=== PATIENT | male | born 1955 | race Caucasian/White ===

== ENCOUNTER → 2018-12-04 09:33 | Outpatient (CLI) | payer OTHER, SELFPAY ==
--- NOTE | 2018-12-04 10:58 | DI.MRI.S_ITS ---
PROCEDURE: MR KNEE RT WO CON INDICATIONS: RIGHT KNEE PAIN CENTERED ON PATELLA POST FALL INJURY IN JUNE 2018 TECHNIQUE: Noncontrast sagittal PD fast spin echo and T2 fast spin echo with fat saturation, sagittal 3-D FLASH with fat saturation; coronal T1 spin echo and PD fast spin echo with fat saturation, and axial PD fast spin echo with fat saturation through the knee. COMPARISON: None. FINDINGS: Image quality: Excellent. Menisci: The medial meniscus is extruded medially. Amorphous high signal intensity within the anterior horn, body, and posterior horn of the medial meniscus is present, indicating degenerative tearing. Truncation of the free edge of the medial meniscal body and posterior horn is present, indicating radial tearing. There is oblique tearing of the posterior horn medial meniscus at the meniscal root ligament insertion site. Lateral meniscus demonstrates a discoid configuration without evidence of superimposed tear. Cruciate ligaments: The anterior and posterior cruciate ligaments appear intact. Medial structures: The medial collateral ligament appears intact. There is moderate fluid deep to the medial collateral ligament. Visualized portions of the pes anserinus tendons appear normal. No abnormal bursal fluid. Lateral structures: The lateral collateral ligament, long and short heads of the biceps femoris tendon appear intact. The popliteus tendon appears normal. Iliotibial band appears normal. Anterior structures: The quadriceps and patellar tendons appear intact. Mild T2 signal elevation within the patellar tendon at the patellar insertion site is present. Patellar alignment is normal. No femoral trochlear dysplasia or ventral trochlear prominence. No edema in the infrapatellar fat pad. Bones and cartilage: No bone marrow contusions or fractures. Mild degenerative marrow edema within the weightbearing aspects of the medial femoral condyle and medial tibial plateau. Moderate tricompartmental periarticular osteophyte formation is present. There is severe diffuse articular cartilage loss overlying the weightbearing aspects of the medial femoral condyle and medial tibial plateau. There is mild diffuse articular cartilage loss overlying the weightbearing aspects of the lateral femoral condyle and lateral tibial plateau. Joint space: There is a moderate knee joint effusion. Multiple small intra-articular loose bodies are present. No Sethi's cyst. Normal appearing synovial plicae are incidentally noted. IMPRESSION: 1. Multifocal complex tearing of the medial meniscus. 2. Discoid lateral meniscus without tear. 3. Tricompartmental osteoarthritis with associated articular cartilage loss. 4. Medial collateral ligament bursitis.5. Knee joint effusion with multiple small intra-articular loose bodies. 6. Patellar tendinitis. Dictated by: Nghia Nguyen M.D. on 12/04/2018 at 12:58 Approved by: Nghia Nguyen M.D. on 12/04/2018 at 13:06
== END ==
PROVIDERS: PCP Physician Assistant; Visit Provider Physician Assistant
DX: M25.561 Pain in right knee (principal); S83.231A Complex tear of medial meniscus, current injury, right knee, initial encounter; M17.11 Unilateral primary osteoarthritis, right knee; M70.51 Other bursitis of knee, right knee; M76.51 Patellar tendinitis, right knee
CPT/HCPCS: 73721

== ENCOUNTER → 2019-06-18 07:44 | Outpatient (CLI) | payer OTHER, SELFPAY ==
--- NOTE | 2019-06-18 | DI.MRI.S_ITS ---
PROCEDURE: MR LUMBAR SPINE WO CON INDICATIONS: Low back pain TECHNIQUE: Noncontrast sagittal T1 spin echo and T2 fast echo, sagittal STIR, axial T1 and T2 fast spin echo through the lumbar spine. In cases with scoliosis, additional coronal T2 fast spin echo may be performed. COMPARISON: None. FINDINGS: Image quality: Excellent. Alignment and Curvature: There is trace retrolithesis of L2 on L3, L3 on L4, trace anterolithesis of L5 on S1. Transitional anatomy is noted. For purposes of this examination, vertebral bodies are labeled one through 5. Lumbarized first sacral vertebral body is noted. Bone Marrow: Marrow is of normal overall signal. Increased T1/T2 singnal in the vertebral bodies at L4, L5, S1 consistent with hemangiomas, No acute vertebral body compression fractures. Spinal Cord: Conus medullaris terminates at the L2 level. Visualized cord demonstrates normal signal and size. Paraspinous Soft Tissues: No paravertebral masses. Discs: Mild/moderate desiccation is present throughout the lumbar spine. L1-L2: No disc bulge, spinal stenosis or foraminal narrowing. L2-L3: Mild disc bulge with small posterior central/left paracentral protrusion. No spinal stenosis. Moderate bilateral foraminal narrowing with facet and ligamentum flavum hypertrophy. L3-L4: Mild disc bulge without spinal stenosis. Moderate to severe right and mild/moderate left foraminal narrowing with facet and ligamentum flavum hypertrophy. L4-L5: Mild disc bulge without spinal stenosis. There is a right lateral recess component as well as significant facet hypertrophy at this location causing significant compromise of the right lateral recess and proximal right foramina. Minimal to mild left foraminal narrowing. L5-S1: Mild disc bulge with moderate spinal stenosis. Severe left foraminal narrowing. In addition, there is an extruded fragment causing compromise of the left lateral recess and proximal left foramina. IMPRESSION: 1. Multilevel disc bulges including extruded fragment at left L5-S1 causing significant compromise of the left lateral recess and left proximal foramina. 2. Moderate spinal stenosis at L5 S1 secondary to disc bulge as well as marked facet and ligamentum flavum arthropathy. Dictated by: Yumi Liu M.D. on 06/18/2019 at 13:19 Approved by: Yumi Liu M.D. on 06/18/2019 at 14:34
== END ==
PROVIDERS: PCP Physician Assistant; Visit Provider Physician Assistant
DX: M54.5 Low back pain (principal); M48.061 Spinal stenosis, lumbar region without neurogenic claudication; M48.07 Spinal stenosis, lumbosacral region; M47.816 Spondylosis without myelopathy or radiculopathy, lumbar region; M47.817 Spondylosis without myelopathy or radiculopathy, lumbosacral region
CPT/HCPCS: 72148

== ENCOUNTER → 2020-06-27 07:58 | Outpatient (CLI) | payer MEDICARE, BC, SELFPAY ==
--- NOTE | 2020-06-27 | DI.US.S_ITS ---
PROCEDURE: US ABD AORTA ANEURYSM SCREEN INDICATIONS: SCREEN TECHNIQUE: Real time scanning was performed of the aorta and iliac arteries, with image documentation. COMPARISON: None. FINDINGS: Aorta: Proximal aortic diameter measures 2.4 cm. Mid-aorta measures 1.9 cm. Distal aortic diameter is 1.8 cm. Iliac arteries: Right common iliac artery measures 1.1 cm. Left common iliac artery measures 1.2 cm. IMPRESSION: No aneurysm found. Dictated by: Aguilar Sims M.D. on 06/27/2020 at 8:39 Approved by: Aguilar Sims M.D. on 06/27/2020 at 8:43
== END ==
PROVIDERS: PCP Physician Assistant; Referring Provider Nurse Practitioner Family; Visit Provider Nurse Practitioner Family
DX: Z13.6 Encounter for screening for cardiovascular disorders (principal)
CPT/HCPCS: 76706

== ENCOUNTER → 2022-06-23 09:29 | Outpatient (CLI) | payer MEDICARE, BC, SELFPAY ==
[2022-06-23 10:46] LABS: COVID19 -Nasal RAPID Negative (Negative)
== END ==
PROVIDERS: PCP Internal Medicine; Visit Provider Surgery
DX: Z20.822 Contact with and (suspected) exposure to COVID-19 (principal); Z01.812 Encounter for preprocedural laboratory examination
CPT/HCPCS: 87635; C9803

== ENCOUNTER 2022-06-24 07:57 | Day surgery (SDC) | payer MEDICARE, BC, SELFPAY ==
--- NOTE | 2022-06-24 | PATH_ITS ---
[facility] Accession Number: [id number] . 01 Material submitted: . colon - DESCENDING COLON POLYP . 01 Diagnosis: Descending Colon Polyp: Tubular adenoma. MRV 06/25/2022 1008 Local . 01 Electronically signed: . Nohemy Reeves MD, Pathologist NPI- [id number] . 01 Gross description: . DESCENDING COLON POLYP: Received in formalin is 1 fragment(s) of alicia, soft tissue measuring 0.4 x 0.3 x 0.2 cm submitted entirely in 1 cassette(s) /EWA 06/24/2022 2208 Local . 01 Pathologist provided ICD-10: K63.5, Z12.11 . 01 CPT . 052487 Specimen Comment: A courtesy copy of this report has been sent to [phone] Performed at: 01 [facility] [address] [place] [id number] MD Bebeto Juares MD Phone: [phone]
[2022-06-24 08:24] VITALS: BP 148/78; PULSE 72; RESP 16; TEMP 36.5; O2SAT 99
[2022-06-24 08:26] VITALS: BMI 24.9
[2022-06-24] MEDS: LACTATED RINGERS 1,000 ML 84 ML IV (08:46)
--- NOTE | 2022-06-24 09:04 | PM.HP.1 ---
History of Present Illness History of Present Illness Date Patient Seen: 06/24/22 Time Patient Seen: 09:04 Chief complaint: SDC Narrative: Medardo is a 67-year-old man who is here for colonoscopy. His last was about 5 years ago and no polyps were detected at that time. He did have polyps removed on his first colonoscopy. He is no known family history of colon cancer. Patient History Surgical History (Updated 06/24/22 @ 08:17 by Terri Dunham RN) Hx of colonoscopy Family & Social History Social History: household members spouse Tobacco & Substance use: Smoking Status Former smoker alcohol intake current alcohol intake frequency a few times a week Substance Use Type does not use Meds Home Medications and Allergies Home Medications Medication Instructions Recorded Confirmed Type ASPIRIN (Aspir-Low) 81 mg PO Q DAY ##0 08/02/12 06/24/22 History VITAMIN D (Vitamin D3) 1,000 unit PO QDAY ##0 08/02/12 06/24/22 History PreserVision AREDS-2 1 cap DAILY 06/24/22 06/24/22 History lisinopril 10 1 tab DAILY 06/24/22 06/24/22 History mg-hydrochlorothiazide 12.5 mg tablet Allergies Allergy/AdvReac Type Severity Reaction Status Date / Time No Known Drug Allergies Allergy Verified 06/24/22 08:19 Exam Vital Signs (past 8 hours): - 06/24/22 08:24 Temperature 97.7 F Pulse Rate 72 Respiratory Rate 16 Blood Pressure 148/78 H Pulse Oximetry 99 Oxygen Delivery Method Room Air Oxygen Delivery Method Room Air Const General: healthy appearing Resp Effort & Inspection: normal respiratory effort Assessment & Plan Assessment and plan (1) Colon cancer screening: Status: Acute Plan 67-year-old man due for colonoscopy. We reviewed the risks and benefits and he would like to proceed. Time Spent With Patient Critical Care time: I spent a total of [] minutes of critical care time on this patient's care today; this time is exclusive of procedural time.
[2022-06-24] MEDS: fentaNYL 250 MCG/5 ML INJ 100 MCG IV (09:12)
[2022-06-24] MEDS: MIDAZOLAM 5 MG/5 ML VIAL 4 MG IV (09:12)
--- NOTE | 2022-06-24 09:33 | PM.OP.COLON ---
Operative Date/Time/Diagnoses Date of procedure: 06/24/22 Time of procedure: 09:33 Pre-op diagnosis: Colon cancer screening Post-op diagnosis: same Procedure & Clinicians Study performed: Colonoscopy Same procedure as scheduled: Yes Surgeon: Anoop Urena Procedure Notes Procedure in detail: Surgeon: Anoop Urena MD Procedure: The patient was brought to the endoscopy suite, placed in left lateral decubitus position. The patient was connected to monitoring devices. A time-out was performed. Sedation was administered. Once the patient was adequately sedated, a digital rectal exam was performed. Prostate was enlarged but smooth. The scope was then inserted and advanced to the cecum where the appendiceal orifice was identified and photographed. The scope was then slowly withdrawn over greater than 6 minutes. The mucosa was thoroughly inspected. There was 1 small polyp roughly 4 mm in the descending colon removed with cold forceps. The scope was retroflexed in the rectum. No other lesions were noted. The scope was straightened and removed. The patient was awakened and brought to recovery. Versed: 4 mg Fentanyl: 100 mcg EBL: 5 mL Findings: 1 small polyp in the descending colon Scope withdrawal time: 12 Sedation minutes: 21 Post-procedure Recommendations: Will call with biopsy results Disposition: PACU
[2022-06-24 09:38] VITALS: BP 122/69; PULSE 68; RESP 14; TEMP 36.5; O2SAT 100
[2022-06-24 09:41] VITALS: BP 104/76; PULSE 75; RESP 16; O2SAT 99
[2022-06-24 09:45] VITALS: BP 119/74; PULSE 70; RESP 16; O2SAT 100
[2022-06-24 10:00] VITALS: BP 123/70; PULSE 77; RESP 16; O2SAT 100
== END 2022-06-24 10:08 | disposition home or self-care (01) ==
PROVIDERS: PCP Internal Medicine; Referring Provider Surgery; Visit Provider Surgery
PROC: 0DJD8ZZ Inspection of Lower Intestinal Tract, Via Natural or Artificial Opening Endoscopic (ICD-10-PCS; CPT 45378; principal; 2022-06-24 09:15)
DX: Z12.11 Encounter for screening for malignant neoplasm of colon (principal); D12.4 Benign neoplasm of descending colon
CPT/HCPCS: 45380; 99152; J2250; J3010

== ENCOUNTER → 2023-08-03 09:03 | Outpatient (CLI) | payer MEDICARE, BC, SELFPAY ==
--- NOTE | 2023-08-03 09:06 | DI.RAD.S_ITS ---
PROCEDURE: XR KNEE RT 3V INDICATIONS: RIGHT KNEE PAIN TECHNIQUE: 3 views of the knee were acquired. COMPARISON: None. FINDINGS: Bones: No fractures or dislocations. Xktl-oi-tmmrtxst tricompartmental osteoarthritis is seen more notably in medial femoral tibial compartment with joint space narrowing, subchondral sclerosis and marginal osteophyte formation. No patellar subluxation. No suspicious bony lesions. Soft tissues: Small to moderate suprapatellar joint effusion is seen.. No suspicious soft tissue calcifications. IMPRESSION: 1. Moul-fh-rufdylnl tricompartmental osteoarthritis more notably in medial femoral tibial compartment. No fracture or dislocation. Small to moderate joint effusion. Dictated by: Gibson Fitzgerald M.D. on 08/03/2023 at 10:03 Approved by: Gibson Fitzgerald M.D. on 08/03/2023 at 10:04
--- NOTE | 2023-08-03 09:06 | DI.RAD.S_ITS ---
PROCEDURE: XR LUMBAR SPINE MIN 4V INDICATIONS: BACK PAIN TECHNIQUE: Five views of the lumbar spine were acquired, including bilateral oblique views. COMPARISON: None. FINDINGS: Bones: 5 nonrib-bearing vertebrae are present. There is kmjb-bo-dmnsfkjt dextroscoliosis of lumbar spine with apex at L2-3 level. Degenerative endplate changes and loss of disc height throughout lumbar spine is seen. 1.1 cm anterolisthesis of L4 on L5 is seen. 8 mm retrolisthesis of L2 on L3 is seen. 5 mm anterolisthesis of L3 on L4 is also noted. No vertebral body compression fractures. No suspicious bony lesions. Soft tissues: Overlying bowel gas pattern is normal. No suspicious soft tissue calcifications. Oblique images: No pars defects. IMPRESSION: Fvam-uc-csejkcqe dextroscoliosis centered at L2-3 level. Spondylolisthesis at L2-3, L3-4 and L4-5 levels as above. No acute compression fracture. Degenerative disc disease throughout lumbar spine. No gross pars defect. Dictated by: Gibson Fitzgerald M.D. on 08/03/2023 at 10:04 Approved by: Gibson Fitzgerald M.D. on 08/03/2023 at 10:06
== END ==
PROVIDERS: PCP Internal Medicine; Referring Provider Physical Medicine & Rehabilitation; Visit Provider Physical Medicine & Rehabilitation
DX: M17.11 Unilateral primary osteoarthritis, right knee (principal); S83.8X1S Sprain of other specified parts of right knee, sequela; M25.461 Effusion, right knee; M51.36 Other intervertebral disc degeneration, lumbar region; M43.16 Spondylolisthesis, lumbar region; M48.062 Spinal stenosis, lumbar region with neurogenic claudication; M41.9 Scoliosis, unspecified; M25.561 Pain in right knee; M54.9 Dorsalgia, unspecified
CPT/HCPCS: 72110; 73562; 99214

== ENCOUNTER → 2024-10-03 11:17 | Outpatient (CLI) | payer MEDICARE, BC, SELFPAY ==
[2024-10-03 12:47] LABS: Add Manual Diff / Slide Review NO; Basophils Absolute Auto 0 /uL (0-100); Basophils Percent Auto 0.7 % (0-2); Eosinophils Absolute Auto 0 /uL (0-450); Eosinophils Percent Auto 0.9 % (2-4); Hematocrit 43.1 % (41-53); Hemoglobin 14.6 g/dL (13.5-17.5); Lymphocytes Absolute Auto 1500 /uL (1100-4500); Lymphocytes Percent Auto 25.8 % (25-40); Mean Corpuscular HGB Conc 33.9 % (30-36); Mean Corpuscular Hemoglobin 30.7 PG (26-34); Mean Corpuscular Volume 90.7 fL (80-100); Monocytes Absolute Auto 600 /uL (0-900); Monocytes Percent Auto 11.1 % (3-14); Neutrophils Absolute Auto 3600 /uL (1500-7000); Neutrophils Percent Auto 61.5 % (50-75); Platelet Count 243 X10^3/uL (150-400); Red Blood Cell Count 4.75 X10^6/uL (4.5-5.9); Red Cell Distribution Width 12.7 % (11.6-14.8); White Blood Cell Count 5.8 X10^3/uL (4.5-11.0)
[2024-10-03 13:14] LABS: C-Reactive Protein Quant 0.9 mg/dL (<1.0)
== END ==
PROVIDERS: PCP Registered Nurse; Referring Provider Physical Medicine & Rehabilitation; Visit Provider Physical Medicine & Rehabilitation
DX: M25.461 Effusion, right knee (principal)
CPT/HCPCS: 36415; 85025; 86140

== ENCOUNTER → 2024-10-03 15:07 | Outpatient (CLI) | payer MEDICARE, BC, SELFPAY ==
--- NOTE | 2024-10-03 15:08 | DI.MRI.S_ITS ---
PROCEDURE: MR KNEE RT WO CON INDICATIONS: Right knee effusion TECHNIQUE: Noncontrast sagittal PD fast spin echo and T2 fast spin echo with fat saturation, sagittal 3-D FLASH with fat saturation; coronal T1 spin echo and PD fast spin echo with fat saturation, and axial PD fast spin echo with fat saturation through the knee. COMPARISON: [facility] [place], CR, XR KNEE 4+ VIEWS RIGHT, 05/26/2022, 9:07. [facility], MR, MR KNEE RT WO CON, 12/04/2018, 10:36. FINDINGS: Image quality: Excellent. Anterior cruciate ligament: Moderate to severe mucoid degeneration of the anterior cruciate ligament. Posterior cruciate ligament: Intact. Medial collateral ligament: Intact. Lateral collateral ligament: Intact. Medial meniscus: Complex degenerative tearing and maceration of the medial meniscus with extrusion beyond the femorotibial joint line, mildly progressed when compared to the MRI from 12/04/2018. Lateral meniscus: There is progressive complex degenerative tearing and maceration of the lateral meniscus predominant involving the anterior horn and body with meniscal extrusion, which has significantly progressed when compared to the prior MRI. Medial and lateral tendons: The semimembranosus tendon insertions appear intact. Visualized portions of the pes anserinus tendons appear normal. The popliteus tendon is intact. Iliotibial band appears normal. Anterior structures: Patellar tendinosis. The distal quadriceps tendon is intact. No patellar subluxation. No femoral trochlear dysplasia or ventral trochlear prominence. No edema in the infrapatellar fat pad. Bones and cartilage: Mild osseous edema in the lateral tibial plateau is likely related to overlying cartilage loss versus less likely an osseous contusion or insufficiency fracture. Medial femorotibial cartilage: Diffuse full thickness cartilage loss throughout the weight-bearing portion of the medial femorotibial compartment with subchondral edema and remodeling of the articular surfaces. Small marginal osteophytes. Lateral femorotibial cartilage: Multifocal high-grade and full-thickness cartilage loss throughout the lateral femorotibial compartment, which has significantly progressed when compared to the MRI from 12/04/2018 with subchondral edema most prominent at the central portion of the lateral tibial plateau. Small marginal osteophytes. Patellofemoral cartilage: Full-thickness cartilage fissuring and multifocal cartilage irregularity are seen in the patellofemoral compartment with small marginal osteophytes. 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 Pericapsular ganglion cyst posterior to the intercondylar notch measures approximately 16 mm in diameter. Trace medial popliteal cyst. There is grade 2 fatty infiltration of the musculature surrounding the knee. IMPRESSION: 1. Complex degenerative tearing and maceration at the anterior horn and body of the lateral meniscus with extrusion beyond the femorotibial joint line, new when compared to the MRI from 12/04/2018. 2. Diffuse complex macerated tear of the medial meniscus has mildly progressed. 3. Moderate to severe mucoid degeneration of the anterior cruciate ligament. 4. High-grade and full-thickness cartilage loss in the weight-bearing portion of the lateral femorotibial compartment with moderate subchondral edema, which is new when compared to the prior MRI. Full-thickness cartilage loss again seen throughout the medial femorotibial compartment with remodeling of the articular surfaces and there is grade 3 chondromalacia in the patellofemoral compartment. 5. Patellar tendinosis. 6. Large joint effusion with lipoma arborescens. Approved by: Herman Galindo M.D. on 10/03/2024 at 16:11
== END ==
PROVIDERS: PCP Registered Nurse; Referring Provider Physical Medicine & Rehabilitation; Visit Provider Physical Medicine & Rehabilitation
DX: S83.231A Complex tear of medial meniscus, current injury, right knee, initial encounter (principal); S83.271A Complex tear of lateral meniscus, current injury, right knee, initial encounter; S83.8X1A Sprain of other specified parts of right knee, initial encounter; M17.11 Unilateral primary osteoarthritis, right knee; M25.461 Effusion, right knee; M22.41 Chondromalacia patellae, right knee; D17.79 Benign lipomatous neoplasm of other sites; X58.XXXA Exposure to other specified factors, initial encounter
CPT/HCPCS: 36415; 73721; 85025; 86140; 99214

== ENCOUNTER → 2025-03-13 09:24 | Outpatient (CLI) | payer MEDICARE, BC, SELFPAY ==
--- NOTE | 2025-03-13 09:25 | DI.ECHO.S_ITS ---
[facility] : : [id number] : : [place] : : [id number] : : Phone: [phone] Echocardiogram Report + + :Name: ALICE BARCLAY Study Date: 03/13/2025 Height: 76 in : :[facility] ReadingLocation: Weight: 205 lb : : Gender: Male BSA: 2.2 m2 : :: 1955 Age: 69 yrs BP: 166/88 mmHg: :Reason For Study: ABNORMAL EKG : :Ordering Physician: DAILY, : :JOEY Performed By: Carlos Gonzalez : :Referring: JOEY AMBROSIO : + + Interpretation Summary The ejection fraction is estimated to be 55-60%. Diastolic parameters suggest probable normal left ventricular diastolic function and normal filling pressures. The right ventricle is normal in size and function. No valvular abnormalities. Pulmonary artery pressures cannot be estimated because of the lack of a measurable TR jet velocity but the IVC suggests a CVP of around 3 mmHg. The aortic root is mildly dilated, 4.0 cm. Procedure: A two-dimensional transthoracic echocardiogram with color flow and Doppler was performed. The study quality was technically good. There is no prior echocardiogram noted for this patient. The patient was in normal sinus rhythm during the exam. Left Ventricle: The left ventricle is normal in size. There is normal left ventricular wall thickness. There is no ventricular septal defect visualized. The ejection fraction is estimated to be 55-60%. There are no focal wall motion abnormalities. Diastolic parameters suggest probable normal left ventricular diastolic function and normal filling pressures. Right Ventricle: The right ventricle is normal in size and function. Atria: The left atrial size is normal. The right atrium is mildly dilated. There is no Doppler evidence for an interatrial shunt. Mitral Valve: The mitral valve leaflets appear normal. There is no evidence of stenosis, fluttering, or prolapse. There is trace mitral regurgitation. Aortic Valve: The aortic valve is trileaflet. The aortic valve opens well. There is no aortic valve stenosis. No aortic regurgitation is present. Tricuspid Valve: The tricuspid valve leaflets are thin and pliable. There is a trace or physiologic amount of tricuspid regurgitation. Pulmonary artery pressures cannot be estimated because of the lack of a measurable TR jet velocity but the IVC suggests a CVP of around 3 mmHg. Pulmonic Valve: The pulmonic valve is not well seen, but is grossly normal. There is no pulmonic valvular regurgitation. Great Vessels: The aortic root is mildly dilated. The dimensions of the ascending aorta are normal. The pulmonary artery is not well visualized, but is probably normal size. The IVC is of normal diameter and collapses greater than 50% with a sniff. This suggests a low right atrial pressure of 3 mm Hg. Pericardium/ Pleura There is no pericardial effusion. There is no pleural effusion. MMode/2D Measurements & Calculations LVIDd: 5.6 cm LVOT diam: 2.2 cm LVIDs: 3.4 cm Ao root diam: 4.0 cm FS: 38.9 % asc Aorta Diam: 3.5 cm EPSS: 0.52 cm IVSd: 0.70 cm LVPWd: 0.82 cm LV florian. diameter/BSA (cm/m^2): 2.5 LV sys. diameter/BSA (cm/m^2): 1.5 LA A2 area: 20.1 cm2 RA long axis: 5.5 cm LA A4 area: 15.7 cm2 RA area: 19.0 cm2 LA length (vol): 5.0 cm RA vol: 55.6 ml LA vol: 53.2 ml RA : 24.8 ml/m2 LA vol index: 23.8 ml/m2 IVC diam: 1.9 cm RVD1 (basal): 4.0 cm RVD2 (mid): 2.3 cm TAPSE: 3.6 cm Doppler Measurements & Calculations Ao V2 max: 150.7 cm/sec LVOT Max Johnny: 115.0 cm/sec Ao V2 mean: 103.8 cm/sec LV V1 max P.3 mmHg Ao max P.1 mmHg LV V1 VTI: 26.2 cm Ao mean P.8 mmHg LISA(I,D): 3.4 cm2 Ao V2 VTI: 30.0 cm LISA(V,D): 2.9 cm2 sev ratio: 0.87 LISA indexed to BSA (cm^2/m^2): 1.5 MV E max johnny: 41.8 cm/sec PA V2 max: 96.1 cm/sec MV A max johnny: 77.9 cm/sec PA V2 mean: 71.1 cm/sec MV E/A: 0.54 PA mean P.2 mmHg Med Peak E' Johnny: 7.1 cm/sec PA pr(Accel): 20.8 mmHg E/E' med: 5.9 Lat Peak E' Johnny: 8.3 cm/sec E/E' lat: 5.0 E/e' average: 5.4 MV dec time: 0.13 sec SV(LVOT): 100.8 ml Reading Physician:02:39 PM
== END ==
LOC: ECHO 09:25
PROVIDERS: PCP Registered Nurse; Referring Provider Registered Nurse; Visit Provider Registered Nurse
DX: I77.810 Thoracic aortic ectasia (principal); R94.31 Abnormal electrocardiogram [ECG] [EKG]
CPT/HCPCS: 93306